=== PATIENT | female | born 1980 | race Caucasian/White ===

== ENCOUNTER → 2021-05-06 | Outpatient (CLI) | payer OTHER ==
[~2021-05-06] MED LIST: CYCLOBENZAPRINE5 MG PO; IBUPROFEN800 MG PO
[2021-05-06 11:21] LABS: BUN/CREATININE RATIO 14 (0-10)
== END ==
LOC: LAB 09:05
PROVIDERS: Internal Medicine Cardiovascular Disease
DX: E78.5 Hyperlipidemia, unspecified (principal)
CPT/HCPCS: 36415; 80053; 80061; 84439; 84443

== ENCOUNTER → 2021-05-12 | Outpatient (CLI) | payer OTHER | LOC: HEART 5 04-28 14:00 → ECHO 05-06 10:00 → HEART 5 11:08 | DX: R00.0 Tachycardia, unspecified (principal) | CPT/HCPCS: 93306 ==